=== PATIENT | female | born 1925 | race Caucasian/White ===

== ENCOUNTER 2016-05-13 15:15 | Emergency (ER) | payer MEDICARE, OTHER ==
[~2016-05-13] VITALS: Ht 162.6 cm; Wt 59.5 kg
[~2016-05-13 15:15] MED LIST: CEPH500C PO; HYDR-4003 PO
[2016-05-13 15:43] VITALS: BP 147/77; PULSE 78; RESP 14; O2SAT 95
[2016-05-13 16:13] LABS: BASOPHILS % (AUTO) 0.3 % (0-3); EOSINOPHILS % (AUTO) 1.7 % (0-5); MONOCYTES % (AUTO) 8.4 % (4-12); Mean Corpuscular Hemoglobin 28.7 pg (27.0-35.0); Mean Corpuscular Volume 82.8 fL (81-100); Platelet Count 167 bil/L (150-400)
[2016-05-13 16:35] LABS: TROPONIN T < 0.010 ug/L (0.0-0.011)
--- NOTE | 2016-05-13 16:52 | DRSVH ---
PROCEDURE: X-RAY CHEST ONE VIEW, PORTABLE ([id number]) INDICATIONS: SHORTNESS OF BREATH TECHNIQUE: One view of the chest was acquired. COMPARISON: [facility], CR, XR CHEST 2VW, 04/25/2015, 12:35. FINDINGS: Surgical changes and devices: None. Lungs and pleura: No pleural effusions or pneumothorax. Lungs are clear. COPD changes are noted. Mediastinum: Mediastinal contours appear normal. Heart size is normal. Bones and chest wall: No suspicious bony lesions. Overlying soft tissues appear unremarkable. IMPRESSION: No acute pulmonary process. Dictated by: Adri Hall M.D. on 05/13/2016 at 16:48 Approved by: Adri Hall M.D. on 05/13/2016 at 16:49
--- NOTE | 2016-05-13 16:59 | ED.REPORT ---
HPI-Dyspnea / Wheezing Date of Service May 13, 2016 ED Provider: Abdelrahman Howard DO Patient is an 89 year old female who presents to the ED complaining of SOB upon exertion onset 5 mo ago that has been worsening over the past few weeks. Her SOB is purely exertional and has progressed so that while showering she feels the need to lay down and catch her breath. She denies chest pain, diaphoresis, or any other symptoms. Nursing Notes Stated Complaint: SHORTNESS OF BREATH Chief Complaint: General Complaint Nursing Notes Reviewed: Yes Allergies: Coded Allergies: No Known Allergies (Unverified Allergy, Unknown, 05/13/16) Scheduled Cephalexin (Cephalexin) 500 Mg Capsule 500 MG PO TID Scheduled PRN Hydrocodone-Acetaminophen 5-325 mg (Hydrocodone-Acetaminophen 5-325 mg) 1 Each Tablet 1 TABLET PO BID PRN PRN For Pain General Time Seen by MD: 16:26 Chief Complaint Shortness of breath Hx Obtained From: Patient Arrived By: Walk-in Sudden in Onset?: No Onset Occurred: More than a week ago... Past Medical History Past Medical History Arthritis ulcerative colitis Reports: Hypertension Reports: Thyroid disease Past Surgical History Reports: Cataract surgery, Cholecystectomy Smoking History Never Smoker Social History Alcohol Use: Denies alcohol use Drug Use: Denies drug use Other Social History: Good social support, Local resident Ambulatory Status Independent Review of Systems Basic Review of Systems Eyes: Vision NL GI: No abdominal pain, No anorexia : No dysuria Hematologic: No bleeding, No bruising Endocrine: No cold intolerance, No heat intolerance Neurologic: NL mental status, No weakness Psychiatric: Normal thought content Constitutional: Reports: Weakness - generalized Respiratory: Reports: Dyspnea on exertion Cardiovascular: Denies: Chest pain Skin: Denies Diaphoresis Complete sys rev & neg: except as marked. Physical Exam Initial Vital Signs Vital Signs (First) Date Time Temp Pulse Resp B/P Pulse Ox O2 Delivery O2 Flow Rate FiO2 05/13/16 15:43 36.5 78 14 147/77 95 Room Air Initial VS: Reviewed Head / Eyes: Atraumatic, Normocephalic Abdomen / GI: Soft, Non-tender Skin: Warm, Dry Neurologic: Alert, Oriented, Nonfocal Psychiatric: Mood/affect normal, Behavior normal, Normal thought content General/Constitutional: Awake, Alert, Well developed Neck: Supple Respiratory / Chest: Atraumatic, Breath sounds NL Cardiovascular: Heart rate NL, Regular rhythm, Heart sounds NL superficial varicosities with R>L. Interpretation & Diagnostics Lab Results Interpretation Result Diagram: 05/13/16 1606 05/13/16 1606 Test 05/13/16 16:06 05/13/16 17:29 05/13/16 18:57 White Blood Count 5.7th/mm3 (3.8-10.1) Red Blood Count 4.77mil/mm3 (3.90-5.20) Hemoglobin 13.7g/dL (12.0-15.6) Hematocrit 39.5% (35.0-46.0) Mean Corpuscular Volume 82.8fL (81-100) Mean Corpuscular Hemoglobin 28.7pg (27.0-35.0) Mean Corpuscular Hemoglobin Concent 34.7% (32.0-37.0) Red Cell Distribution Width 13.4% (12.3-15.4) Platelet Count 167bil/L (150-400) Neutrophils (%) (Auto) 74.0% (40-74) Lymphocytes (%) (Auto) 15.4% (14-46) Monocytes (%) (Auto) 8.4% (4-12) Eosinophils (%) (Auto) 1.7% (0-5) Basophils (%) (Auto) 0.3% (0-3) D-Dimer < 0.50mg/L FEU (<0.50) Sodium Level 138mEq/L (134-144) Potassium Level 4.1mEq/L (3.5-5.2) Chloride Level 99mEq/L (97-108) Carbon Dioxide Level 24mmol/L (18-29) Blood Urea Nitrogen 16mg/dL (8-27) Creatinine 0.75mg/dL (0.57-1.00) Estimat Glomerular Filtration Rate 104mL/min (>59) Glucose Level 95mg/dL (60-99) Calcium Level 10.3mg/dL (8.5-10.1) Total Bilirubin 0.4mg/dL (0.0-1.2) Aspartate Amino Transf (AST/SGOT) 20U/L (0-50) Alanine Aminotransferase (ALT/SGPT) 17U/L (0-32) Alkaline Phosphatase 73U/L (25-165) Pro-B-Type Natriuretic Peptide 200.8pg/mL (0-738) Total Protein 7.7g/dL (6.4-8.4) Albumin 4.3g/dL (3.4-5.0) Hold Dillard Top Tube Received (Received) Urine Color Yellow (YELLOW) Urine Appearance Clear (CLEAR,HAZY) Urine pH 6.5 (5.0-8.0) Urine Specific Preemption 1.010 (1.003-1.035) Urine Protein Negativemg/dL (NEG,TRACE) Urine Glucose (UA) Negativemg/dL (NEGATIVE) Urine Ketones Negativemg/dL (NEGATIVE) Urine Occult Blood Negative (NEGATIVE) Urine Nitrite Negative (NEGATIVE) Urine Bilirubin Negative (NEGATIVE) Urine Urobilinogen Normalmg/dL (NORMAL) Urine Leukocyte Esterase Small (NEGATIVE) Urine RBC 0-2/hpf (0-2) Urine WBC 11-50/hpf (0-5) Urine Epithelial Cells Few/hpf (NONE-MOD) Urine Crystals None seen (NONE SEEN) Urine Bacteria Few/hpf (NONE-FEW) Urine Hyaline Casts None/lpf (NONE) Urine Granular Casts None seen (NONE SEEN) Urine Waxy Casts None seen (NONE SEEN) Urine Red Blood Cell Casts None seen (NONE SEEN) Urine White Blood Cell Casts None seen (NONE SEEN) Urine Mucus None seen (None Seen) Urine Trichomonas None seen (NONE SEEN) Urine Yeast None (NONE SEEN) Urinalysis Comment None Urine Culture Reflexed Indicated Troponin T < 0.010ug/L (0.0-0.011) ECG Interpretation ECG Interpretation: Sinus rate 55 Incomplete RBBB Time: 16:14 Interpreted by: ED physician X-Ray Chest Interpretation Chest Xray Interpretation: IMPRESSION: No acute pulmonary process. Dictated by: Adri Hall M.D. on 05/13/2016 at 16:48 Approved by: Adri Hall M.D. on 05/13/2016 at 16:49 View: Portable, 1 view Interpretation / Wet Read by: Interpret - Radiologist Re-Eval/Medical Decision Med Decision/Clinical Course Arielle did great. MN, PE, CHF, pneumonia all ruled out. She does have a urinary tract infection. She will be treated as such. She has next day follow-up. She was able ambulate without difficulty the emergency department. I expect that her insidious dyspnea may have something to do with the UTI however I do recommend echocardiogram and possible pulmonary evaluation. Either way she see her doctor tomorrow and she feels comfortable being discharged home. Re-Evaluation/Progress : Time of Eval: 19:45 Re-Evaluation/Progress Note: Discussed plan for discharge. Patient understands and agrees with plan. All questions addressed at this time. Counseled Regarding: Diagnosis, Lab results, Need for follow-up, When/why to return to ED Discharge & Departure Impression: Primary Impression: Exertional dyspnea Additional Impression: Urinary tract infection Urinary tract infection type: acute cystitis Hematuria presence: without hematuria Qualified Code: N30.00 - Acute cystitis without hematuria Disposition: Home Patient Instructions: Urinary Tract Infection in Women (DC) Additional Instructions: Your chest x-ray, EKG, serial blood tests and blood clot blood test were negative. No signs of pneumonia, heart attack, blood clot or congestive heart failure. Your urine does have 50 white cells and bacteria in it, consistent with a urine infection. Take Bactrim twice daily for 5 more days. Keep your follow-up tomorrow with Dr. Broderick and have her review all of this. I do recommend that you consider setting up for an echocardiogram to be sure that your heart is still strong. You may also need evaluation of your lungs as well. Do not hesitate to return if you have any problems or any new or worsening symptoms. Dr. Broderick should note that we are going to culture your urine and this will help guide further therapy. Referrals: Kirstie Broderick MD (PCP) Scribe Attestation Portions of this note were transcribed by Hieu Tabor. I, Dr. Howard personally performed the history, physical exam and medical decision-making; I reviewed and confirmed the accuracy of the information in the transcribed note. Signed by: Hieu Tabor 05/13/16, 1953 copies to: Kirstie Broderick MD, Todd P DO May 13, 2016 16:59 HIEU TABOR May 13, 2016 17:12
[2016-05-13 17:49] LABS: APPEARANCE,URINE CLEAR (CLEAR,HAZY); COLOR,URINE YELLOW (YELLOW); OCCULT BLOOD,URINE NEGATIVE (NEGATIVE); PH,URINE 6.5 (5.0-8.0); UROBILINOGEN,URINE NORMAL (NORMAL)
[2016-05-13] MEDS ORDERED: Trimethoprim-Sulfa 160 mg-800 mg Tablet PO ONE (18:35)
[2016-05-13 20:20] VITALS: BP 138/60; PULSE 66; O2SAT 95
== END 2016-05-13 20:20 | disposition home or self-care (01) ==
LOC: SED 15:15
DX: R06.09 Other forms of dyspnea (principal); N30.00 Acute cystitis without hematuria; I10 Essential (primary) hypertension; Z86.39 Personal history of other endocrine, nutritional and metabolic disease